=== PATIENT | female | born 1970 | race African-American/Black ===

== ENCOUNTER 2021-10-24 16:56 | Observation (INO) | payer OTHER, MEDICAID, SELFPAY ==
--- NOTE | ~2021-10-24 | MR_ITS ---
EXAMINATION: MR abdomen wo/w con DATE: 10/25/2021 12:02 INDICATION: Liver mass. TECHNIQUE: Magnetic resonance imaging (MRI) of the abdomen was performed without and with 19 mL Multi Cat intravenous contrast. COMPARISON: CT abdomen and pelvis 10/24/2021 FINDINGS: There is diffuse hepatic steatosis. There is a portacaval shunt in right hepatic lobe. There is a por tacaval shunt in left hepatic lobe. There are cysts in the liver measuring up to 13 mm. The gallbladd er, spleen, pancreas, adrenal glands, and kidneys are normal. There is fat stranding adjacent to a di verticulum of the sigmoid colon with local bowel wall thickening, consistent with diverticulitis. The re are multiple supraumbilical ventral hernias containing fat. IMPRESSION: 1. Intrahepatic portacaval shunts correlating with the CT abnormalities. 2. Diffuse hepatic steatosis. 3. Acute sigmoid diverticulitis. No abscess. Reviewed, dictated and finalized at location A.
--- NOTE | ~2021-10-24 | US_ITS ---
EXAMINATION: US abdomen limited DATE: 10/26/2021 14:41 INDICATION: PIPER, evaluate portal vein. TECHNIQUE: Multiple grayscale and Doppler ultrasound images of the abdomen were obtained. COMPARISON: MR abdomen 10/25/21 FINDINGS: The head, body, and tail of the pancreas are normal. The liver is enlarged with increased e chogenicity and smooth echotexture. No surface nodularity. Normal hepatopetal flow in the main portal vein, no thrombus, 12.3 mm diameter. The gallbladder is normal with no abnormal wall thickening, per icholecystic fluid or stones. The normal common bile duct measures 4.1. There was no sonographic Murp hy sign. IMPRESSION: 1. Hepatomegaly. Steatosis. 2. Sonographically normal portal vein findings. Reviewed, dictated and finalized at location K.
--- NOTE | ~2021-10-24 | CT_ITS ---
EXAMINATION: CT abdomen pelvis wo con DATE: 10/24/2021 19:07 INDICATION: Left lower quadrant abdominal pain. Blood in stool. TECHNIQUE: Computed tomography (CT) of the abdomen and pelvis was performed without intravenous contr ast. Automated exposure control and iterative reconstruction technique were employed. The dose-length product was 1200.77 mGy-cm. COMPARISON: None. FINDINGS: The visualized portions of the lung bases are clear without pneumonia or pleural effusion. The heart size is normal. No pericardial effusion. There are cysts in the liver measuring up to 1.5 c m. There is a 1.7 cm mass in right hepatic lobe. There is a 1.9 cm mass in left hepatic lobe. The gal lbladder, spleen, pancreas, adrenal glands, and kidneys are normal. There is a urolithiasis. There ar e scattered diverticula in the colon. There is fat stranding around a sigmoid diverticulum, consisten t with diverticulitis. The appendix is normal. There is an intrauterine device in expected position. There are multiple supraumbilical ventral hernias containing fat. There are no pathologically enlarge d lymph nodes. There is no free intraperitoneal fluid. There is mild lumbar spondylosis. IMPRESSION: 1. Sigmoid diverticulitis. No perforation or abscess. 2. Two liver masses with the larger measuring 1.9 cm, which may be benign or malignant. Abdomen MRI w ithout and with contrast is recommended. 3. Multiple supraumbilical ventral hernias containing fat. Reviewed, dictated and finalized at location E. IMPRESSION: 1. Sigmoid diverticulitis. No perforation or abscess. 2. Two liver masses with the larger measuring 1.9 cm, which may be benign or ma lignant. Abdomen MRI without and with contrast is recommended. 3. Multiple supraumbilical ventral hernias containing fat.
[2021-10-24 17:15] VITALS: BP 111/90; PULSE 92; RESP 18; TEMP 35.9; O2SAT 100
[2021-10-24 17:33] LABS: Basophils Percent Auto 0.3 % (0.2-1.2); Eosinophils Absolute Auto 0.1 K/mm3 (0-0.3); Eosinophils Percent Auto 1.2 % (0-4.4); Hemoglobin 8.7 g/dL (12.0-15.0); Immature Granulocyte Absolute 0.05 K/mm3 (0.00-0.031); Immature Granulocyte Percent A 0.6 % (0-0.5); Lymphocytes Absolute Auto 1.31 K/mm3 (0.9-3.2); Lymphocytes Percent Auto 14.7 % (18.3-44.2); Mean Corpuscular Hemoglobin 25.7 pg (26-34); Mean Corpuscular Volume 85.8 fl (80-100); Mean Platelet Volume 8.9 fl (7.4-10.4); Monocytes Absolute Auto 0.6 K/mm3 (0.1-0.6); Monocytes Percent Auto 6.6 % (2.6-8.5); Neutrophils Absolute Auto 6.8 K/mm3 (1.3-6.7); Neutrophils Percent Auto 76.6 % (45.5-73.1); Platelet Count Result 392 k/mm3 (150-375); Red Blood Count 3.38 M/mm3 (4.2-5.4); Red Cell Distribution Width 18.6 % (11.5-14.5); White Blood Count 8.9 K/mm3 (4.5-10.0)
[2021-10-24 17:43] LABS: Alanine Aminotransferase 16 U/L (6-35); Alkaline Phosphatase 95 U/L (38-126); Anion Gap 3 mmol/L (8-16); Aspartate Amino Transferase 24 U/L (14-36); Bilirubin,Total 0.3 mg/dL (0.2-1.3); Blood Urea Nitrogen 12 mg/dL (7-17); Calcium 9.1 mg/dL (8.4-10.2); Carbon Dioxide 30 mmol/L (22-30); Chloride 106 mmol/L (98-107); Estimated Glomerular Filt Rate > 60; Glucose 101 mg/dL (65-110); Lipase 62 U/L (23-300); Potassium 3.8 mmol/L (3.4-5.0); Sodium 139 mmol/L (137-145)
--- NOTE | 2021-10-24 18:11 | ED.ABDPAIN ---
HPI - Abdominal Pain General Chief Complaint: Abdominal Pain Stated Complaint: blood in stool, abd pain Time Seen by Provider: 10/24/21 17:33 Source: RN notes reviewed History of Present Illness HPI narrative: Patient presents emergency room from home for abdominal pain. Patient states abdominal pain began approximately 4 days ago. The pain is located left lower quadrant does not radiate described as sharp and stabbing in nature. States is been associated with blood in her stool that is dark in color. She denies any fevers or chills chest pain shortness of breath nausea vomiting or any other symptoms. Patient states she has had a history of diverticulitis since had colonoscopies before in the past also states she had a history of blood in the stool with her diverticulitis Related Data Allergies Allergy/AdvReac Type Severity Reaction Status Date / Time No Known Allergies Allergy Verified 10/24/21 18:36 Review of Systems Review of Systems: Gen.: Denies fevers or chills ENT: Denies congestion Respiratory: Denies shortness of breath or cough CV: Denies chest pain or palpitations GI: See HPI Musculoskeletal: Denies back pain or muscle pain Neuro: Denies numbness, tingling, weakness or focal weakness Skin: Denies rash Except as documented, all other systems reviewed and negative [facility] Past Medical History Medical History (Updated 10/24/21 @ 19:51 by Arturo Tejeda DO) Diverticulitis Social History Social History (Updated 10/24/21 @ 18:12 by Arturo Tejeda DO) Smoking status: Never smoker Exam Narrative: APPEARANCE: No acute distress, nontoxic, resting in bed HEENT: Normocephalic, atraumatic, OMM RESPIRATORY: No respiratory distress, clear to auscultation bilaterally with no rhonchi wheezing or rales CARDIOVASCULAR: RRR s murmur ABDOMINAL: Soft nondistended tender palpation left lower quadrant no tenderness left upper quadrant, right upper quadrant right lower quadrant no rebound or guarding, Rectal: Hemorrhoids present no active bleeding small amount of soft brown stool that is Hemoccult negative MUSCULOSKELETAl: Moves all extremities. No clubbing, cyanosis or edema. NEURO: Awake and alert. Following commands, speech normal, no focal deficits SKIN:: Warm, dry. Normal Color PSYCHIATRIC: Normal affect/mood Course Course Emergency Course: Discussed with Dr. Ugalde presentation work-up agrees with admission Discussed with patient and family results of workup and diagnosis. Discussed need for admission. Patient and family understand and agree to current treatment plan Vital Signs Vital signs: Vital Signs Temperature 96.7 F L 10/24/21 17:15 Pulse Rate 92 10/24/21 17:15 Respiratory Rate 18 10/24/21 17:15 Blood Pressure 111/90 10/24/21 17:15 Pulse Oximetry 100 10/24/21 17:15 Temperature 96.7 F L 10/24/21 17:15 Pulse Rate 90 10/24/21 18:21 Respiratory Rate 18 10/24/21 18:21 Blood Pressure 148/86 H 10/24/21 18:21 Pulse Oximetry 96 10/24/21 18:21 MDM - Abdominal Pain MDM Narrative Medical decision making narrative: Patient presents left lower quadrant abdominal pain dark blood in stool minimal stool on rectal exam and initial guaiac was negative patient does have anemia on work-up CT scan shows diverticulitis with concerns of blood in stool and diverticulitis we will start antibiotics and admit repeat hemoglobin in a.m. Lab Data Result diagrams: 10/24/21 17:28 10/24/21 17:28 Labs: Lab Results 10/24/21 10/24/21 10/24/21 Range/Units 17:28 17:28 18:41 WBC 8.9 (4.5-10.0) K/mm3 RBC 3.38 L (4.2-5.4) M/mm3 Hgb 8.7 L (12.0-15.0) g/dL Hct 29.0 L (37.0-47.0) % MCV 85.8 (80-100) fl MCH 25.7 L (26-34) pg MCHC 30.0 L (32-36) g/dl RDW 18.6 H (11.5-14.5) % Plt Count 392 H (150-375) k/mm3 MPV 8.9 (7.4-10.4) fl Immature Gran % (Auto) 0.6 H (0-0.5) % Neut % (Auto) 76.6 H (45.5-73.1)
[2021-10-24 18:21] VITALS: BP 148/86; PULSE 90; RESP 18; O2SAT 96
[2021-10-24 18:56] LABS: Appearance Urine Clear (Clear); Bilirubin Urine Negative (Negative); Blood Urine Negative (Negative); Color Urine Yellow (Yellow); Glucose Urine UA Negative (Negative); Ketones Urine Negative (Negative); Leukocyte Esterase Ur Negative LEU/UL (Negative); Nitrate Urine Negative (Negative); Protein Urine Negative (Negative); Specific Grav Ur 1.025 (1.001-1.035); Urobilinogen Urine 0.2 mg/dL (<2.0); pH Urine 6.5 (5.0-9.0)
[2021-10-24 18:58] LABS: Lactic Acid Reflex 1.9 mmol/L (0.7-2.0); RBC Urine 0-2 /hpf (0-2); Squamous Epithelial Cell Urine Rare /hpf (Few); WBC Urine 0-3 /hpf
[2021-10-24 19:01] LABS: Add Urine Microscopic? YES
--- NOTE | 2021-10-24 19:47 | PM.IMHP ---
H&P: HPI History of Present Illness Date/Time: 10/24/21 19:47 Chief Complaint: Abdominal pain. Narrative: This is a 51-year-old female with past medical history significant for hypertension, iron deficiency anemia, asthma, obesity Patient presents to the emergency room due to left flank pain with radiation on down to her rectal area of 3 day duration patient denies any chills, fevers, rigors no nausea, no vomiting, has had her usual bowel movement however has had blood in the stool denies any mucus in the stools, no weight loss, no change in stool character, no melena, no coffee-ground emesis, no bright red blood per rectum, patient states that this is her 4th diverticulitis in the last 2 years or so, patient has not been able to eat as this exacerbates the pain, has not been able to sleep as she keeps waking up from her sleep due to pain which is crampy in nature she rates that 8/10 in intensity, patient to ibuprofen at home to relieve the pain however it got worse. Preliminary workup was significant for CT of abdomen and pelvis showed sigmoid diverticulitis and liver mass as well as multiple ventral hernias. Patient is been admitted for further evaluation, management and treatment. Review of Systems Review of Systems: Abdominal pain, poor appetite, Constitutional: Constitutional: Denies chills, Denies fever(s) and Reports poor appetite Eyes: Eyes: Denies change in vision ENT: Denies dysphagia, Denies vertigo, Denies dizziness, Denies nasal congestion, Denies nasal discharge and Denies odynophagia Cardiovascular: Cardiovascular: Denies pedal edema, Denies irregular heart rhythm, Denies claudication, Denies lightheadedness, Denies radiating jaw, neck or arm pain, Denies palpitations and Denies dyspnea on exertion Respiratory: Respiratory: Denies cough Gastrointestinal: Gastrointestinal: Reports abdominal pain, Denies melena, Denies hematochezia, Denies coffee ground emesis, Reports GI cramping, Denies dyspepsia, Denies heartburn, Denies diarrhea, Denies nausea and Reports other (Stool mixed in with dark blood) Genitourinary: Genitourinary: Denies dysuria Musculoskeletal: Musculoskeletal: Denies back pain, Denies arthralgias and Denies joint swelling Integumentary/Breasts: Skin/Breast: Denies rash Psychiatric: Psychiatric: Reports no additional psychiatric complaints and Reports as per HPI Endocrine: Endocrine: Denies cold intolerance, Denies flushing, Denies heat intolerance, Denies polyphagia, Denies palpitations and Reports other (Hot flashes) Hematologic/Lymphatic: Hematologic/Lymphatic: Reports no additional hematologic/lymphatic complaints and Reports as per HPI Allergic/Immunologic: Allergic/Immunologic: Reports no additional allergic/immunologic complaints and Reports as per HPI PMFSH Past Medical History Medical History (Updated 10/25/21 @ 02:37 by Patrick Salcedo MD) Diverticulitis Family History Family History (Updated 10/24/21 @ 23:10 by Angie Ryder RN) Sibling Breast cancer Mother Asthma Cerebrovascular accident Diabetes mellitus Lung cancer Social History Social History (Updated 10/24/21 @ 18:12 by Arturo Tejeda DO) Smoking status: Never smoker Alcohol intake: never Substance use: never Substance use type: does not use Spiritual care concerns: No Meds Home Medications and Allergies Home Medications Medication Instructions Recorded Confirmed Type albuterol sulfate 2.5 mg/3 mL 1 ml inhalation Q6H PRN Shortness 10/24/21 10/24/21 History (0.083 %) solution for nebulization Of Breath Or Wheezing cyclobenzaprine 10 mg tablet 10 tablet PO TID PRN Muscle Spasm 10/24/21 10/24/21 History ferrous sulfate 325 mg (65 mg 3,250 tablet PO DAILY 10/24/21 10/24/21 History iron) tablet (FeroSul) gabapentin 100 mg capsule 100 cap PO DAILY 10/24/21 10/24/21 History losartan 100 1 tablet PO DAILY 10/24/21 10/24/21 History mg-hydrochlorothiazide 12.5 mg tablet
[2021-10-24] MEDS: MORPHINE SULFATE (*CRX) 4 MG/ML INJ IV PUSH ×2 (20:10→22:20)
[2021-10-24 20:12] VITALS: BP 142/74; PULSE 85; RESP 17; O2SAT 98
[2021-10-24 21:02] LABS: SARS-CoV-2 RNA PCR Negative
[2021-10-24 21:32] VITALS: BP 125/76; PULSE 88; RESP 16; O2SAT 97
[2021-10-24 22:19] VITALS: BP 120/75; PULSE 92; RESP 16; TEMP 37.6; O2SAT 100; BMI 37.6
[2021-10-24] MEDS: SODIUM CHLORIDE 0.9% IV 1,000 ML 125 ML IV CONT (22:31)
--- NOTE | 2021-10-24 22:50 | ADMGEN ---
This patient, Lizbet Hugo, was admitted to [facility] Surg Room 325-01. Patient/family oriented to hospital policies and general routines including ID bracelet, bed and alarms, visiting hours, pain management, procedures, bathroom and other care routines, personal items, smoking policy, room service/diet, and visiting hours. Information on how to activate the Rapid Response Team has been discussed. Patient/Family are encouraged to report perceived risks to care and to ask questions if they do not understand what they are told or what they should do.
[2021-10-25] VITALS (8 sets, daily range): BP systolic 111–129; BP diastolic 65–88; PULSE 79–106; RESP 16; TEMP 36.8–37.9; O2SAT 97–100
[2021-10-25] MEDS: SODIUM CHLORIDE 0.9% IV 1,000 ML 125 ML IV CONT (06:05)
[2021-10-25 06:25] LABS: Basophils Percent Auto 0.3 % (0.2-1.2); Eosinophils Absolute Auto 0.1 K/mm3 (0-0.3); Eosinophils Percent Auto 0.6 % (0-4.4); Hematocrit 25.4 % (37.0-47.0); Hemoglobin 7.6 g/dL (12.0-15.0); Immature Granulocyte Absolute 0.04 K/mm3 (0.00-0.031); Immature Granulocyte Percent A 0.4 % (0-0.5); Lymphocytes Absolute Auto 1.55 K/mm3 (0.9-3.2); Lymphocytes Percent Auto 14.2 % (18.3-44.2); Mean Corpuscular HGB Conc 29.9 g/dl (32-36); Mean Corpuscular Hemoglobin 25.7 pg (26-34); Mean Corpuscular Volume 85.8 fl (80-100); Mean Platelet Volume 9.2 fl (7.4-10.4); Monocytes Absolute Auto 0.9 K/mm3 (0.1-0.6); Monocytes Percent Auto 8.3 % (2.6-8.5); Neutrophils Absolute Auto 8.3 K/mm3 (1.3-6.7); Neutrophils Percent Auto 76.2 % (45.5-73.1); Platelet Count Result 367 k/mm3 (150-375); Red Blood Count 2.96 M/mm3 (4.2-5.4); Red Cell Distribution Width 18.9 % (11.5-14.5); White Blood Count 10.9 K/mm3 (4.5-10.0)
[2021-10-25 07:02] LABS: Alanine Aminotransferase 14 U/L (6-35); Albumin Level 3.6 g/dL (3.5-5.1); Alkaline Phosphatase 81 U/L (38-126); Anion Gap 6 mmol/L (8-16); Aspartate Amino Transferase 23 U/L (14-36); Bilirubin,Total 0.6 mg/dL (0.2-1.3); Blood Urea Nitrogen 11 mg/dL (7-17); Calcium 8.4 mg/dL (8.4-10.2); Carbon Dioxide 25 mmol/L (22-30); Chloride 105 mmol/L (98-107); Estimated CRCL calculation 92 ml/min; Estimated Glomerular Filt Rate > 60; Glucose 110 mg/dL (65-110); Potassium 3.7 mmol/L (3.4-5.0); Sodium 136 mmol/L (137-145)
[2021-10-25 07:04] LABS: Anisocytosis 2+ (NORMAL); Hypochromasia 2+ (NORMAL); Platelet Estimate Adequate (Adequate); Poikilocytosis 2+ (NORMAL)
[2021-10-25] MEDS: ENOXAPARIN 40 MG/0.4 ML SYRINGE SUB-Q (08:52)
--- NOTE | 2021-10-25 10:14 | PM.IMPN ---
Progress Note: A&P Assessment and Plan (1) Sigmoid diverticulitis: Code(s): K57.32 - Diverticulitis of large intestine without perforation or abscess without bleeding Status: Acute Assessment and Plan: -noted on CT abd/pelv -no abscess or perforation -continue IVF, zosyn -clear liquids (2) Abdominal pain: Code(s): R10.9 - Unspecified abdominal pain Status: Acute Assessment and Plan: -plan as above (3) Iron deficiency anemia: Code(s): D50.9 - Iron deficiency anemia, unspecified Status: Acute Assessment and Plan: -Patient is on iron supplementation -Follow-up in outpatient setting (4) Liver mass: Code(s): R16.0 - Hepatomegaly, not elsewhere classified Status: Acute Assessment and Plan: -noted on CT abd/pelv -MRI liver today (5) Ventral hernia: Code(s): K43.9 - Ventral hernia without obstruction or gangrene Status: Acute Assessment and Plan: -No signs of incarceration -Continue to monitor (6) Obesity (BMI 30-39.9): Code(s): E66.9 - Obesity, unspecified Status: Acute Assessment and Plan: =Lifestyle and diet modifications Subjective Date/time seen: 10/25/21 10:14 Interval history: 51-year-old female with past medical history significant for hypertension, iron deficiency anemia, asthma, obesity, diverticulitis, admitted for acute sigmoid diverticulitis. Pt is feeling better today, still having some mild abdominal pain. Has not had a BM. No N/V. Had a low grade fever overnight. No cp/sob. Review of Systems Review of Systems: All systems reviewed & are unremarkable except as noted in HPI and below Exam Narrative: General: No acute distress, non toxic appearing, obese Eyes: PERRL, no scleral icterus HEENT: NCAT, external ears normal, MMM Respiratory: No respiratory distress, Lungs CTA bilaterally, no wheezing Cardiovascular: RRR, no murmur Abdominal: Soft, moderate suprapubic and LLQ ttp, non distended, no rebound or guarding Musculoskeletal: Moves all 4 extremities, no edema Neurological: A/Ox3, speech clear, no facial asymmetry Skin: Warm, dry, no rashes Psychiatric: Normal affect, normal mood Objective Data Vital Signs Vital Signs: Vital Signs - 24 hr 10/24/21 17:15 10/24/21 18:21 10/24/21 20:12 Temperature 96.7 F L Pulse Rate 92 90 85 Respiratory Rate 18 18 17 Blood Pressure 111/90 148/86 H 142/74 H Pulse Oximetry 100 96 98 Oxygen Delivery 10/24/21 21:32 10/24/21 22:19 10/24/21 23:06 Temperature 99.7 F H Pulse Rate 88 92 Respiratory Rate 16 16 Blood Pressure 125/76 120/75 Pulse Oximetry 97 100 Oxygen Delivery Room Air 10/25/21 04:59 Temperature 100.2 F H Pulse Rate 106 H Respiratory Rate 16 Blood Pressure 129/88 Pulse Oximetry 97 Oxygen Delivery Intake/Output Intake/Output: Intake & Output 10/22/21 10/23/21 10/24/21 10/25/21 23:59 23:59 23:59 23:59 Intake Total 50 1050 Balance 50 1050 Meds/Results Medications: Active Medications Generic Name Dose Route Start Last Admin Trade Name Freq PRN Reason Stop Dose Admin Albuterol 2.5 mg 10/25/21 01:19 Albuterol Sulfate Neb 2.5 Mg/3 Ml Inh INHALATION Q6H PRN Shortness Of Breath Or Wheezing Cyclobenzaprine HCl 10 mg 10/25/21 01:19 Cyclobenzaprine Hcl 10 Mg Tablet PO TID PRN Muscle Spasm Enoxaparin Sodium 40 mg 10/25/21 09:00 10/25/21 08:52 Enoxaparin 40 Mg/0.4 Ml Syringe SUB-Q 40 mg DAILY [facility] Administration Ferrous Sulfate 324 mg 10/25/21 08:00 Ferrous Sulfate 324 Mg Tablet PO DAILY@0800 [facility] Gabapentin 100 mg 10/25/21 09:00 Gabapentin 100 Mg Capsule PO DAILY [facility] Hydromorphone HCl 1 mg 10/25/21 01:18 Hydromorphone Hcl Inj (*Crx) 1 Mg/Ml Syr IV PUSH Q3H PRN Pain Rated 7-10 Piperacillin/Tazobactam/Dextrose 3.375 gm in 50 mls @ 100 mls/hr 06
--- NOTE | 2021-10-25 11:22 | PC.NURSE ---
Patient went down to MRI via wheelchair at 1122
[2021-10-25] MEDS: FERROUS SULFATE 324 MG TABLET PO (12:33)
[2021-10-25] MEDS: GABAPENTIN 100 MG CAPSULE PO ×2 (12:33→16:44)
[2021-10-25] MEDS: HYDROcodone/acetaminophen (*CRX) 5-325 MG TABLET 1 TAB PO (16:42)
[2021-10-26] MEDS: HYDROcodone/acetaminophen (*CRX) 5-325 MG TABLET 1 TAB PO (01:16)
[2021-10-26 05:23] VITALS: BP 117/65; PULSE 86; RESP 16; TEMP 36.7; O2SAT 99
[2021-10-26 06:00] LABS: Basophils Percent Auto 0.4 % (0.2-1.2); Eosinophils Absolute Auto 0.1 K/mm3 (0-0.3); Eosinophils Percent Auto 1.7 % (0-4.4); Hematocrit 23.3 % (37.0-47.0); Hemoglobin 7.2 g/dL (12.0-15.0); Immature Granulocyte Absolute 0.03 K/mm3 (0.00-0.031); Immature Granulocyte Percent A 0.4 % (0-0.5); Lymphocytes Absolute Auto 1.73 K/mm3 (0.9-3.2); Lymphocytes Percent Auto 24.1 % (18.3-44.2); Mean Corpuscular HGB Conc 30.9 g/dl (32-36); Mean Corpuscular Hemoglobin 25.7 pg (26-34); Mean Corpuscular Volume 83.2 fl (80-100); Mean Platelet Volume 8.7 fl (7.4-10.4); Monocytes Absolute Auto 0.6 K/mm3 (0.1-0.6); Monocytes Percent Auto 8.8 % (2.6-8.5); Neutrophils Absolute Auto 4.7 K/mm3 (1.3-6.7); Neutrophils Percent Auto 64.6 % (45.5-73.1); Platelet Count Result 337 k/mm3 (150-375); Red Cell Distribution Width 18.5 % (11.5-14.5); White Blood Count 7.2 K/mm3 (4.5-10.0)
[2021-10-26 06:29] LABS: Alanine Aminotransferase 12 U/L (6-35); Albumin Level 3.4 g/dL (3.5-5.1); Alkaline Phosphatase 75 U/L (38-126); Anion Gap 2 mmol/L (8-16); Aspartate Amino Transferase 22 U/L (14-36); Bilirubin,Total 0.6 mg/dL (0.2-1.3); Blood Urea Nitrogen 7 mg/dL (7-17); Calcium 8.2 mg/dL (8.4-10.2); Carbon Dioxide 27 mmol/L (22-30); Chloride 107 mmol/L (98-107); Estimated CRCL calculation 92 ml/min; Estimated Glomerular Filt Rate > 60; Glucose 102 mg/dL (65-110); Lipase 69 U/L (23-300); Potassium 3.4 mmol/L (3.4-5.0); Sodium 136 mmol/L (137-145)
[2021-10-26 08:00] VITALS: PULSE 86; RESP 16; O2SAT 99
[2021-10-26] MEDS: ENOXAPARIN 40 MG/0.4 ML SYRINGE SUB-Q (08:22)
[2021-10-26] MEDS: GABAPENTIN 100 MG CAPSULE PO ×2 (08:22→18:48)
[2021-10-26] MEDS: FERROUS SULFATE 324 MG TABLET PO (08:22)
[2021-10-26 08:49] LABS: Ammonia < 9 umol/L (9-30)
[2021-10-26 08:55] LABS: Partial Thromboplastin Time 21.9 SECONDS (22.3-36.8)
--- NOTE | 2021-10-26 10:09 | PM.IMPN ---
Progress Note: A&P Assessment and Plan (1) Sigmoid diverticulitis: Code(s): K57.32 - Diverticulitis of large intestine without perforation or abscess without bleeding Status: Acute Assessment and Plan: -noted on CT abd/pelv -no abscess or perforation -continue IVF, zosyn -tolerated full liquids, NPO for RUQ US today but after that will advance to low fiber (2) Abdominal pain: Code(s): R10.9 - Unspecified abdominal pain Status: Acute Assessment and Plan: -plan as above (3) Iron deficiency anemia: Code(s): D50.9 - Iron deficiency anemia, unspecified Status: Acute Assessment and Plan: -Patient is on iron supplementation -Follow-up in outpatient setting (4) Liver mass: Code(s): R16.0 - Hepatomegaly, not elsewhere classified Status: Acute Assessment and Plan: -noted on CT abd/pelv -MRI liver shows the masses are cysts -outpatient monitoring (5) Ventral hernia: Code(s): K43.9 - Ventral hernia without obstruction or gangrene Status: Acute Assessment and Plan: -No signs of incarceration -Continue to monitor (6) Obesity (BMI 30-39.9): Code(s): E66.9 - Obesity, unspecified Status: Acute Assessment and Plan: =Lifestyle and diet modifications (7) Abnormal MRI: Code(s): R93.89 - Abnormal findings on diagnostic imaging of other specified body structures Status: Acute Assessment and Plan: -MRI shows intrahepatic shunting -does have fatty liver -No hx of cirrhosis or prior dx of liver disease -social etoh use -discussed with radiology who states this could be an indicator of increased intrahepatic pressure, however shehas no other findings on imaging consistent with this -discussed w/ Dr. Crockett GI who recommends venous doppler of the portal vein -RUQ US ordered w/ attention to the portal vein to assess direction of flow Subjective Date/time seen: 10/26/21 10:09 Interval history: 51-year-old female with past medical history significant for hypertension, iron deficiency anemia, asthma, obesity, diverticulitis, admitted for acute sigmoid diverticulitis. Pt requesting to sign out AMA because she doesn't want to wait any longer to be discharged. She is still having intermittent abdominal pain but is tolerating a full liquid diet without N/V/D. No cp/sob. Review of Systems Review of Systems: All systems reviewed & are unremarkable except as noted in HPI and below Exam Narrative: General: No acute distress, non toxic appearing, obese Eyes: PERRL, no scleral icterus HEENT: NCAT, external ears normal, MMM Respiratory: No respiratory distress, Lungs CTA bilaterally, no wheezing Cardiovascular: RRR, no murmur Abdominal: Soft, moderate suprapubic and LLQ ttp, non distended, no rebound or guarding Musculoskeletal: Moves all 4 extremities, no edema Neurological: A/Ox3, speech clear, no facial asymmetry Skin: Warm, dry, no rashes Psychiatric: Normal affect, normal mood Objective Data Vital Signs Vital Signs: Vital Signs - 24 hr 10/25/21 10:30 10/25/21 10:59 10/25/21 11:22 Temperature 100.1 F H 100.1 F H 98.4 F Pulse Rate Respiratory Rate Blood Pressure Pulse Oximetry Oxygen Delivery 10/25/21 14:00 10/25/21 14:42 10/25/21 19:58 Temperature 98.2 F Pulse Rate 88 Respiratory Rate 16 Blood Pressure 118/70 Pulse Oximetry 100 98 Oxygen Delivery Room Air Room Air 10/25/21 21:39 10/26/21 05:23 Temperature 98.8 F 98.0 F Pulse Rate 79 86 Respiratory Rate 16 16 Blood Pressure 111/65 117/65 Pulse Oximetry 100 99 Oxygen Delivery Intake/Output Intake/Output: Intake & Output 10/23/21 10/24/21 10/25/21 10/26/21 23:59 23:59 23:59 23:59 Intake Total 50 3160 840 Output Total 1325 1200 Balance 50 1739 -191 Meds/Results Medications: Active Medications Generic Name Dose Route Star
[2021-10-26 14:00] VITALS: BP 137/80; PULSE 83; RESP 18; TEMP 36.7; O2SAT 100
[2021-10-26 20:38] VITALS: O2SAT 96
[2021-10-26 22:00] VITALS: BP 126/73; PULSE 87; RESP 18; TEMP 36.8; O2SAT 100
[2021-10-27 05:36] VITALS: BP 117/74; PULSE 79; RESP 18; TEMP 36.5; O2SAT 100
[2021-10-27 06:15] LABS: Basophils Percent Auto 0.6 % (0.2-1.2); Eosinophils Absolute Auto 0.1 K/mm3 (0-0.3); Eosinophils Percent Auto 1.9 % (0-4.4); Hematocrit 27.5 % (37.0-47.0); Hemoglobin 7.8 g/dL (12.0-15.0); Immature Granulocyte Absolute 0.02 K/mm3 (0.00-0.031); Immature Granulocyte Percent A 0.3 % (0-0.5); Lymphocytes Absolute Auto 1.78 K/mm3 (0.9-3.2); Lymphocytes Percent Auto 26.4 % (18.3-44.2); Mean Corpuscular HGB Conc 28.4 g/dl (32-36); Mean Corpuscular Volume 91.7 fl (80-100); Mean Platelet Volume 9.4 fl (7.4-10.4); Monocytes Absolute Auto 0.5 K/mm3 (0.1-0.6); Monocytes Percent Auto 7.7 % (2.6-8.5); Neutrophils Absolute Auto 4.2 K/mm3 (1.3-6.7); Neutrophils Percent Auto 63.1 % (45.5-73.1); Platelet Count Result 350 k/mm3 (150-375); Red Cell Distribution Width 18.5 % (11.5-14.5); White Blood Count 6.7 K/mm3 (4.5-10.0)
[2021-10-27 06:33] LABS: Alanine Aminotransferase 15 U/L (6-35); Albumin Level 3.7 g/dL (3.5-5.1); Alkaline Phosphatase 75 U/L (38-126); Anion Gap 5 mmol/L (8-16); Aspartate Amino Transferase 22 U/L (14-36); Bilirubin,Total 0.3 mg/dL (0.2-1.3); Blood Urea Nitrogen 6 mg/dL (7-17); Calcium 8.6 mg/dL (8.4-10.2); Carbon Dioxide 23 mmol/L (22-30); Chloride 106 mmol/L (98-107); Estimated CRCL calculation 105 ml/min; Estimated Glomerular Filt Rate > 60; Glucose 141 mg/dL (65-110); Potassium 3.5 mmol/L (3.4-5.0); Sodium 134 mmol/L (137-145)
[2021-10-27 07:22] LABS: Hypochromasia 1+ (NORMAL); Platelet Estimate Adequate (Adequate)
[2021-10-27 07:23] LABS: Hyperchromasia 1+ (NORMAL)
[2021-10-27 07:24] LABS: Anisocytosis 1+ (NORMAL); Spherocytes 1+ (NORMAL)
[2021-10-27 07:26] LABS: Poikilocytosis 1+ (NORMAL)
[2021-10-27 08:00] VITALS: O2SAT 100
[2021-10-27] MEDS: GABAPENTIN 100 MG CAPSULE PO ×2 (08:46→12:16)
[2021-10-27] MEDS: FERROUS SULFATE 324 MG TABLET PO (08:46)
[2021-10-27 10:59] LABS: Hemoglobin A1C 5.8 % (<5.7)
[2021-10-27 11:58] LABS: Iron 40 ug/dL (37-170)
--- NOTE | 2021-10-27 12:03 | PM.DS ---
DS: Admitting Diagnosis Discharge Date 10/27/2021 Admitting Diagnosis Acute sigmoid diverticulitis Hepatomegaly w/liver mass DS: Discharge Diagnosis Discharge Diagnosis (1) Sigmoid diverticulitis: Code(s): K57.32 - Diverticulitis of large intestine without perforation or abscess without bleeding Status: Acute (2) Hepatic steatosis: Code(s): K76.0 - Fatty (change of) liver, not elsewhere classified Status: Chronic (3) Iron deficiency anemia: Qualifiers: Iron deficiency anemia type: unspecified iron deficiency Qualified Code(s): D50.9 - Iron deficiency anemia, unspecified Code(s): D50.9 - Iron deficiency anemia, unspecified Status: Chronic (4) Obesity (BMI 30-39.9): Code(s): E66.9 - Obesity, unspecified Status: Acute (5) Ventral hernia: Qualifiers: Obstruction and gangrene presence: without obstruction or gangrene Qualified Code(s): K43.9 - Ventral hernia without obstruction or gangrene Code(s): K43.9 - Ventral hernia without obstruction or gangrene Status: Acute DS: Summary Hospital Course Reason for hospitalization: Abdominal pain, sigmoid diverticulitis Hospital Course: Lizbet uHgo is a 51-year-old AA female with past medical history significant for hypertension, iron deficiency anemia, asthma, obesity and prior diverticulitis episodes.?She presented to the emergency room due to left flank pain with radiation on down to her rectal area for 3 days prior to admission. She denied any chills, fevers, rigors no nausea, no vomiting. She reported her usual bowel movement, however she did note some blood in the stool. No mucus in the stools, weight loss, change in stool character, no melena, no coffee-ground emesis. She has not been able to eat due to the pain, has not been able to sleep due to pain. Her abdominal pain is crampy in nature, 8/10 in intensity, and minimally improved with ibuprofen at home. Preliminary workup in the ED was significant for CT of abdomen and pelvis with sigmoid diverticulitis, liver mass, as well as multiple ventral hernias.? She was admitted to the medical floor for further management of acute diverticulitis. She was placed on bowel rest, given IV fluids, and started on IV zosyn. Her pain was managed with IV/PO pain medications and improved over the course of hospitalization. Her diet was advanced with good tolerance. She remained afebrile, WBC returned to normal and H/H, although low, remained stable at discharge. Abdominal MRI was concerning for diffuse hepatic steatosis and intrahepatic poracaval shunts of unknown signficance. Abdominal US showed patent portal vein without evidence of thrombus. LFTs remained normal. She was counseled on weight loss, diet, abstaining from alcohol. Hepatitis panel was drawn and negative. Hgb was 7.8 on discharge without evidence of melena or hematechezia. Iron panel showed low normal serum iron and low saturation. She was counseled to continue iron supplement and to have repeat H/H in 1 week. Ventral hernias were noted on CT scan, but were without complication or evidence of incarceration. She was discharged home in stable condition on PO ciprofloxacin 500 mg PO BID and metronidazole 500 mg TID x 5 days. Status at Discharge Cognitive/behavioral status at discharge: AOx3. Pleasant Functional status at discharge: independent ambulation Overall status at discharge: patient is progressing back to baseline Time Spent with Patient Time attestation: Total time spent providing and/or coordinating discharge services: Time spent: Greater than 30 minutes Exam Narrative: General: No acute distress, non toxic appearing, obese female sitting up in the chair. No oxygen. Eyes: PERRL, no scleral icterus HEENT: NCAT, external ears normal, MMM Respiratory: No respiratory distress, Lungs CTA bilaterally, no wheezing Cardiovascular: RRR, no murmur Abdominal: Soft, nontender, non distended, no rebo
[2021-10-27 12:09] LABS: Percent Iron Saturation 10 % (20-50)
[2021-10-27 12:30] LABS: Hepatitis B Surface Antigen Negative (Negative)
[2021-10-27 12:36] LABS: HAV RESULT Negative (Negative); Hepatitis B Core IgM Result Negative (Negative)
[2021-10-27 12:48] LABS: Hepatitis C Virus Antibody Negative (Negative)
== END 2021-10-27 13:10 | disposition home or self-care (01) ==
LOC: ANHED 19:51 → ANH3MEDSUR 20:46
PROVIDERS: Physician Assistant; Admitting Provider Internal Medicine; Emergency Provider Emergency Medicine; PCP Family Medicine; Visit Provider Nurse Practitioner Family
DX: K57.32 Diverticulitis of large intestine without perforation or abscess without bleeding (principal); R10.32 Left lower quadrant pain; K92.1 Melena; D50.9 Iron deficiency anemia, unspecified; K76.0 Fatty (change of) liver, not elsewhere classified; R16.0 Hepatomegaly, not elsewhere classified; K43.9 Ventral hernia without obstruction or gangrene; I10 Essential (primary) hypertension; J45.909 Unspecified asthma, uncomplicated; E66.9 Obesity, unspecified; Z68.37 Body mass index [BMI] 37.0-37.9, adult; Z20.822 Contact with and (suspected) exposure to COVID-19
CPT/HCPCS: 36415; 74176; 74183; 76705; 80053; 80074; 81001; 81025; 82140; 82728; 83036; 83540; 83550; 83605; 83690; 84443; 85025; 85610; 85730; 86850; 86900; 86901; 87040; 96361; 96365; 96372; 96374; 96375; 96376; 99285; A9270; A9577; C9803; G0378; J0131; J1650; J2270; J2543; J7030; U0003; U0005